=== PATIENT | male | born 1960 | race African-American/Black ===

== ENCOUNTER 2021-06-28 05:20 | Inpatient (IN) | payer OTHER ==
[~2021-06-28] VITALS: Ht 172.7 cm; Wt 160.6 kg
[2021-06-28] VITALS (7 sets, daily range): BP systolic 90–142; BP diastolic 53–64
--- NOTE | ~2021-06-28 | EMS ---
[address] [address] EMS Patient Care Report Name: ZAYRA NAVAS JR Room #: REG JAVIER Cantrell#: [id number] Admission: 06/28/21 Attend Phys: Discharge: Date of : 60 Report #: [id number] THIS REPORT FOR: //name// Report Transmitted: 06/28/2021 05:12 EMS Care Summary [place], [place]/[facility] Incident [id number] @ 06/28/2021 04:48 Incident Location [address] [place], [place] [id number] Patient ZAYRA NAVAS Male, 61 Years 1960 Patient Address [address] [place] [address] Patient History Congestive Heart Failure (CHF),Diabetes,Hypertension (HTN), Patient Allergies No known allergies, Patient Medications Unknown, Chief Complaint shortness of breath Disposition Transported [place] Dispatch Reason Breathing Problem Transported To [facility] Narrative M36 dispatched on a breathing problems. M36 arrived to home to find calling alliance party directing EMS to garage door. PT found seated in recliner inside of home. PT pale, diaphoretic and cool to the touch. PT stated shortness of breath as chief complaint. PT spoke in short choppy sentences with increased work of [address] [address] EMS Patient Care Report Name: ZAYRA NAVAS JR Room #: REG ER Óscar#: [id number] Admission: 06/28/21 Attend Phys: Discharge: Date of : 60 Report #: [id number] breathing. PT stated history of CHF. CP stated PT had not left recliner in up to a week. CP stated PT refused to go to the hospital before now. PT moved from recliner to stretcher by six Fire and EMS personnel lifting PT to stretcher. PT secured with seatbelts. PT placed on oxygen. PT placed on CPAP in ambulance. CP requested transport to [facility]. PT informed closer facility recommended. PT consented to transport to closer facility. PT vitals monitored during transport. PT report given. PT moved to hospital bed by four person sheet lift. PT care and belongings transferred to ER staff at [facility] without incident. M36 placed back in service. PT reported to [place] [facility] line as he and CP are unable to care for him. Confirmation Your report has been submitted Confirmation Number: [id number] Date: 06/28/2021 6:09 AM Initial Vitals @05:12P: 88,SpO2: 80, @05:15P: 104,R: 22,BP: 108/56,Pain: 0/10,GCS: 13,Glucose: -2,CO: 17,SpO2: 98,Revised Trauma: 12, @05:07P: 100,R: 24,BP: 94/64,Pain: 0/10,GCS: 13,SpO2: 98,Revised Trauma: 12, @05:07P: 144,R: 26,BP: 78/38,Pain: 0/10,GCS: 13,SpO2: 82,Revised Trauma: 11, @05:08P: 120,R: 24,BP: 80/48,Pain: 0/10,GCS: 13,SpO2: 99,Revised Trauma: 11, Assessments @04:56MENTAL:Person Oriented,Time Oriented,Confused,Place Oriented,SKIN:Pale,Cold,Diaphoresis,HEENT:Neck/Airway: JVD,LUNG SOUNDS:ABDOMEN:PELVIS//GI:Incontinence,EXTREMITIES:Left Leg: Edema,Right Leg: Edema,Right Arm: Other,PULSE:Radial: 1+ Thready,NEURO:Other, Impression Shortness of breath Procedures @04:59Oxygen FlowRate: 5 Device: Nasal Cannula (NC) Response: UnchangedSucceeded@04:56ALS AssessmentResponse: UnchangedSucceeded@05:05CPAP FlowRate: 10 Response: UnchangedSucceeded@05:07Saline Lock 0cc (20 ga) Site: Hand-LeftResponse: UnchangedFailed@05:11Saline Lock 10cc (20 ga) Site: Antecubital-RightResponse: UnchangedSucceeded Timeline 04:46,Call Received 04:46,Dispatch Notified 04:48,Dispatched [address] [address] EMS Patient Care Report Name: ZAYRA NAVAS JR Room #: REG Óscar#: [id number] Admission: 06/28/21 Attend Phys: Discharge: Date of : 60 Report #: [id number] 04:50,En Route 04:54,On Scene 04:55,At Patient 04:56,ALS Assessment,Response: UnchangedSucceeded, 04:59,Oxygen FlowRate: 5 Device: Nasal Cannula (NC) Response: UnchangedSucceeded, 05:05,CPAP FlowRate: 10 Response: UnchangedSucceeded, 05:07,BP: 78/38 M,PULSE: 144,RR: 26 R,SPO2: 82 Ox,ETCO2: ,BG: ,PAIN: 0,GCS: 13, 05:07,Saline Lock 0cc 20 ga Site: Hand-Left,Response: UnchangedFailed, 05:07,BP: 94/64 M,PULSE: 100,RR: 24 R,SPO2: 98 Ox,ETCO2: ,BG: ,PAIN: 0,GCS: 13, 05:08,BP: 80/48 M,PULSE: 120,RR: 24 R,SPO2: 99 Ox,ETCO2: ,BG: ,PAIN: 0,GCS: 13, 05:11,Depart Scene 05:11,Saline Lock 10cc 20 ga Site: Antecubital-Right,Response: UnchangedSucceeded, 05:12,BP: / M,PULSE: 88,RR: R,SPO2: 80 Ox,ETCO2: ,BG: ,PAIN: ,GCS: , 05:15,BP: 108/56 M,PULSE: 104,RR: 22 R,SPO2: 98 Ox,ETCO2: ,BG: -2,PAIN: 0,GCS: 13, 05:27,At Destination 05:33,Call Closed Disclaimer v1.1 Copyright 2020 [employer] This EMS Care Summary contains data elements from the applicable legal record (which may be displayed differently). It is designed to provide pertinent information for the following purposes: continuity of care, clinical quality, and state data reporting. The complete legal record is available to ED staff and administrators of the receiving hospital in [employer]'s Patient Tracker. All data is provided "as is."
[~2021-06-28 05:20] MED LIST: ALDACTONE50 MG PO; AZITHROMYCIN 2250 MG PO; BP; COZAAR 50 MG TA50 M2 PO; HYDROCHLOROTHIA25 M2 PO; LANTUS SOL100 UNIT/1 SQ; LASIX 40 MG TAB40 M2 PO; LISINOPRIL5 MG PO; LOPRESSOR50 PO; METFORMIN HCL500 MG; METFORMIN HCL500 MG PO; METOPROLOL TART25 MG PO
[2021-06-28 05:39] LABS: BE(vivo) -12.1 mmol/L (-2 to +3); HCO3 13.2 mmol/L (22.0-26.0); PCO2 28.5 mmHg (35.0-45.0); PO2 176.5 mmHg (80.0-100.0); sO2 99.1 % (92.0-98.0)
[2021-06-28 05:41] LABS: pH 7.285 (7.360-7.450)
[2021-06-28 06:00] LABS: HEMATOCRIT 31.8 % (42.0-52.0); HEMOGLOBIN 9.8 gm/dL (14.0-18.0); MCH 27.2 pg (26.0-34.0); MCHC 30.9 g/dL (28.0-37.0); MCV 87.9 fL (80.0-100.0); PLATELET COUNT 223 thou/uL (150-400); RBC 3.62 mil/uL (4.50-6.00); RDW 15.1 % (10.5-14.5); WBC 16.2 thou/uL (4.0-11.0)
[2021-06-28 06:12] LABS: CALCIUM 7.9 mg/dL (8.5-10.1); CREATININE 7.2 mg/dL (0.7-1.3); POTASSIUM 5.8 mmol/L (3.5-5.1)
[2021-06-28 06:19] LABS: APTT 34.6 Seconds (24.5-32.8); INR 1.3
[2021-06-28 06:25] LABS: ALBUMIN 0.7 g/dL (3.4-5.0); TOTAL BILIRUBIN 0.5 mg/dL (0.2-1.0); TOTAL PROTEIN 5.9 g/dL (6.4-8.2)
[2021-06-28 06:25] LABS: URINE BILIRUBIN NEGATIVE (Negative); URINE BLOOD 1+ (Negative); URINE CLARITY CLOUDY; URINE COLOR YELLOW; URINE GLUCOSE-RANDOM* 2+ (Negative); URINE KETONES NEGATIVE (Negative); URINE NITRITE-REFLEX NEGATIVE (Negative); URINE PROTEIN (DIPSTICK) 2+ (Negative); URINE SPECIFIC GRAVITY 1.025 (1.005-1.035); URINE UROBILINOGEN 0.2 E.U./dl (0.2-1.0)
[2021-06-28 06:26] LABS: URINE LEUKOCYTES-REFLEX 2+ (Negative)
[2021-06-28 06:52] LABS: ABSOLUTE NEUTROPHILS 13.4 thou/uL (1.4-8.2); METAMYELOCYTES 3 %; PLATELET ESTIMATE NORMAL
[2021-06-28 06:56] LABS: COARSE GRANULAR CASTS 4-10 Moderate /LPF (None Seen)
[2021-06-28 06:57] LABS: CRYSTALS None Seen /LPF (None Seen); SQUAMOUS 4-10 Moderate /LPF (0-3); URINE RBC 1-2 Rare /HPF (NONE SEEN); URINE WBC-REFLEX >25 Many /HPF (0-5)
--- NOTE | 2021-06-28 07:04 | NUR ---
0615 I ENTERED ROOM PT HAD TAKEN OFF HIS BIPAP, EDUCATED PT TO IMPORTANCE OF LEAVING BIPAP ON. PT VERBALIZED UNDERSTANDING. [facility] I HEARD THE BIPAP ALARMING AGAIN. UPON ENTERING PT ROOM HE HAD TAKEN OFF HIS BIPAP MASK AGAIN. PT HAD AGONAL RESPIRATIONS AT THAT TIME PT WAS NOT RESPONSIVE TO VERBAL AT THIS TIME AND HIS GAZE WAS UPAND RIGHTWARD. BIPAP MASK REPLACED, PT NOT RESPONSIVE TO STERNAL RUB. NOTIFIED AND AT BEDSIDE TO ASSESS PT. PT CONT TO BE UNRESPONSIVE AND WAS INTUBATED FOR RESP FAILURE.
[2021-06-28 07:14] LABS: HCO3 12.4 mmol/L (22.0-26.0); PCO2 39.2 mmHg (35.0-45.0); PO2 493.5 mmHg (80.0-100.0); pH 7.118 (7.360-7.450); sO2 99.8 % (92.0-98.0)
[2021-06-28 11:50] LABS: BE(vivo) -14.3 mmol/L (-2 to +3); HCO3 12.9 mmol/L (22.0-26.0); PCO2 34.5 mmHg (35.0-45.0); PO2 215.1 mmHg (80.0-100.0); sO2 99.2 % (92.0-98.0)
[2021-06-28 11:51] LABS: pH 7.189 (7.360-7.450)
[2021-06-28 12:17] LABS: ANION GAP 21 mmol/L (7-16); BUN 117 mg/dL (7-18); CALCIUM 7.4 mg/dL (8.5-10.1); CHLORIDE 100 mmol/L (98-107); CO2 13 mmol/L (21-32); CREATININE 6.8 mg/dL (0.7-1.3); GLUCOSE 347 mg/dL (74-106); POTASSIUM 5.7 mmol/L (3.5-5.1); SODIUM 134 mmol/L (136-145)
[2021-06-28 12:23] LABS: SGOT 26 U/L (15-37); SGPT 16 U/L (30-65); TOTAL BILIRUBIN 0.4 mg/dL (0.2-1.0)
--- NOTE | 2021-06-28 12:27 | NUR ---
PT SISTER RICARDO ROBLEDO UPDATED ON PT CONDITION AFTER SURGERY. PT SISTER RICARDO ROBLEDO WAS INFORMED ABOUT ICU VISITATION HOURS AND VISITATION POLICY AND MASK MANDATE IN THE CAMPUS. PT SISTER VERBALIZED UNDERSTANDING.
[2021-06-28 12:33] LABS: ALBUMIN < 0.6 g/dL (3.4-5.0)
--- NOTE | 2021-06-28 13:02 | NUR ---
PT ARRIVED FROM OR AROUND 1130. PT WAS TRANSFERRED BY OR TEAM, AND DR. NAVAS. PT WAS CONNECTED TO ICU MONITORS. PT WAS HYPOTENSIVE ON ARRIVAL TO ICU SO LEVOPHED WAS RESTARTED BY . PT IS CURRENTLY ON LEVOPHED AND PROPOFOL GTT. PT HAS RIGHT ARTERIAL LINE AND RIGHT IJ CENTRAL LINE PLACED BY ANESTHESIOLOGIST. FAMILY UPDATED ON PATIENT CONDITION POST SURGERY.
[2021-06-28 14:27] LABS: BE(vivo) -13.3 mmol/L (-2 to +3); HCO3 13.4 mmol/L (22.0-26.0); PCO2 34.1 mmHg (35.0-45.0); PO2 161.3 mmHg (80.0-100.0); sO2 98.7 % (92.0-98.0)
[2021-06-28 14:28] LABS: pH 7.212 (7.360-7.450)
--- NOTE | 2021-06-28 21:30 | NUR ---
This RN spoke to Dr. Vinita silva [phone] regarding patients poor urine output. Also discussed fluids and patient condition. No orders received, provider to see patient in the morning. Will continue to monitor.
[2021-06-29] VITALS (25 sets, daily range): BP systolic 63–154; BP diastolic 33–66
[2021-06-29 04:17] LABS: ABSOLUTE NEUTROPHILS 11.3 thou/uL (1.4-8.2); BASOPHILS 0.3 % (0.0-2.0); EOSINOPHILS 0.5 % (0.0-3.0); HEMATOCRIT 27.8 % (42.0-52.0); HEMOGLOBIN 8.9 gm/dL (14.0-18.0); LYMPHOCYTES 2.3 % (24.0-44.0); MCH 27.8 pg (26.0-34.0); MCHC 32.1 g/dL (28.0-37.0); MCV 86.6 fL (80.0-100.0); MONOCYTES 2.1 % (1.0-8.0); POLYS 94.8 % (36.0-66.0); RBC 3.21 mil/uL (4.50-6.00); RDW 15.4 % (10.5-14.5); WBC 11.9 thou/uL (4.0-11.0)
[2021-06-29 04:26] LABS: ALBUMIN 0.5 g/dL (3.4-5.0); CALCIUM 7.1 mg/dL (8.5-10.1); CREATININE 5.9 mg/dL (0.7-1.3); PHOSPHORUS 8.4 mg/dL (2.5-4.9); POTASSIUM 4.9 mmol/L (3.5-5.1); TOTAL BILIRUBIN 0.5 mg/dL (0.2-1.0); TOTAL PROTEIN 4.6 g/dL (6.4-8.2)
[2021-06-29 04:30] LABS: PLATELET COUNT 111 thou/uL (150-400)
[2021-06-29 04:59] LABS: HCO3 16.2 mmol/L (22.0-26.0); PCO2 32.3 mmHg (35.0-45.0); PO2 131.1 mmHg (80.0-100.0); sO2 98.4 % (92.0-98.0)
[2021-06-29 05:04] LABS: pH 7.317 (7.360-7.450)
--- NOTE | 2021-06-29 18:26 | NUR ---
PT HAS NO SEEN ANY IMPROVEMENT IN CONDITION TODAY, PT IS PRESENTLY MAXED OUT ON LEVOPHED AT 30, JESSI AT 125, INSULIN DRIP 5U/HR.FENT 50, PROPOFOL 30 AND VASOPRESSIN 0.03. PT CONTINUES TO HAVE POOR URINARY OUTPUT WITH 75CC TODAY DURING DAY SHIFT DESPITE HAVING OVER 3,000ML FLUIDS. PT REMAINS BORDERLINE HYPOTENSIVE DESPITE PRESSOR USE. WOUND CONTINUES TO DRAIN SIGNIFCANTLY WITH A FOUL SMELLING ODOR. PT 2 SISTERES HAVE BEEN BY TODAY TO VISIT WITH THE PATIENT AND HAVE SPOKEN TO MD REGARDING PT OUTLOOK AND HAVE COME TO THE DECESION TO MAKE PT A DNR. WILL CONTINUE TO MONITOR PT AND FOLLOW POC.
[2021-06-30] VITALS (24 sets, daily range): BP systolic 98–140; BP diastolic 47–65
[2021-06-30 04:48] LABS: HEMATOCRIT 24.9 % (42.0-52.0); HEMOGLOBIN 8.3 gm/dL (14.0-18.0); MCH 28.1 pg (26.0-34.0); MCHC 33.2 g/dL (28.0-37.0); MCV 84.8 fL (80.0-100.0); RBC 2.94 mil/uL (4.50-6.00); RDW 15.5 % (10.5-14.5); WBC 15.4 thou/uL (4.0-11.0)
[2021-06-30 04:50] LABS: BE(vivo) -7.1 mmol/L (-2 to +3); HCO3 17.4 mmol/L (22.0-26.0); PO2 143.2 mmHg (80.0-100.0); pH 7.367 (7.360-7.450); sO2 98.8 % (92.0-98.0)
[2021-06-30 05:03] LABS: ALBUMIN < 0.6 g/dL (3.4-5.0); ANION GAP 18 mmol/L (7-16); BUN 112 mg/dL (7-18); CALCIUM 6.2 mg/dL (8.5-10.1); CHLORIDE 96 mmol/L (98-107); CO2 20 mmol/L (21-32); CREATININE 5.2 mg/dL (0.7-1.3); GLUCOSE 142 mg/dL (74-106); PHOSPHORUS 8.9 mg/dL (2.5-4.9); POTASSIUM 4.9 mmol/L (3.5-5.1); SODIUM 134 mmol/L (136-145)
--- NOTE | 2021-06-30 06:17 | NUR ---
PT SEDATED ON VENTILATOR THROUGHOUT SHIFT. TITRATED PRESSORS TOLERATED. GROIN WOUND HAVING LARGE AMOUNT OF DRAINAGE. WILL CONTINUE TO MONITOR.
--- NOTE | 2021-06-30 07:28 | EKG ---
[place] [address] [facility] [address] ELECTROCARDIOGRAM REPORT Name: ZAYRA NAVAS Room #: 243-P ADM IN M.R.#: [id number] Admission: 06/28/21 Attend Phys: Rylee Benitez MD Discharge: Date of : 60 Report #: [id number] [facility] ED Test Date: 2021-06-28 Test Time: 05:37:35 Pat Name: ZAYRA NAVAS Department: Room: 243 Gender: M Trimming Inspector: diane carranza rn : 1960 Requested By: Dalton Kim Order Number: [id number] MD: Berny Hdz Measurements Intervals [place] Rate: 103 P: 31 WY: 155 QRS: -2 QRSD: 98 T: 15 QT: 346 QTc: 453 Interpretive Statements Sinus tachycardia Baseline wander in lead(s) V1,V5,V6 Compared to ECG 12/18/2016 13:48:06 Sinus rhythm no longer present Left ventricular hypertrophy no longer present Electronically Signed On 06-30-2021 7:28:33 CDT by Beryn Hdz [email or web address] <ELECTRONICALLY SIGNED> By: Berny Hdz MD, [facility] 06/30/21 07 6 Berny Hdz MD, [facility] /EPI
--- NOTE | 2021-06-30 09:50 | NUR ---
Chart review, discussed during am unit rounds. Vent 30 % FIO2, Peep 5. Surgical debridement left thigh and perineal area for necrotized faucitis. Dx Sepsis. Report during rounds, family possible thinking of withdrawal care? Cm left message for sister [place] # [phone], requested a call back. Consult for palliative SPEECH PATHOLOGIST ASSISTANT, she spoke with MD and will visit with his siters on options. Prior to hospital he was living alone, difficulty caring for himself at home. Will cont. following as needed for dc needs.
--- NOTE | 2021-06-30 10:06 | NUR ---
Notification of pt with necrotizing fasciitis, also ALBERT, severe sepsis, ALBERT, w/ intubation. Chart reviewed and ICU rounds: pt has been made DNR. No plans for start enteral nutrition at this time.
[2021-07-01] VITALS (17 sets, daily range): BP systolic 81–140; BP diastolic 38–74
[2021-07-01 05:09] LABS: HEMATOCRIT 21.8 % (42.0-52.0); HEMOGLOBIN 7.4 gm/dL (14.0-18.0); MCH 28.2 pg (26.0-34.0); MCHC 33.9 g/dL (28.0-37.0); MCV 83.3 fL (80.0-100.0); PLATELET COUNT 66 thou/uL (150-400); RBC 2.61 mil/uL (4.50-6.00); RDW 15.1 % (10.5-14.5); WBC 13.4 thou/uL (4.0-11.0)
[2021-07-01 05:29] LABS: ALBUMIN < 0.6 g/dL (3.4-5.0); ANION GAP 17 mmol/L (7-16); BUN 111 mg/dL (7-18); CHLORIDE 92 mmol/L (98-107); CO2 21 mmol/L (21-32); CREATININE 4.9 mg/dL (0.7-1.3); GLUCOSE 201 mg/dL (74-106); PHOSPHORUS 9.8 mg/dL (2.5-4.9); POTASSIUM 5.2 mmol/L (3.5-5.1); SODIUM 130 mmol/L (136-145)
[2021-07-01 05:53] LABS: CALCIUM 5.9 mg/dL (8.5-10.1)
--- NOTE | 2021-07-01 08:00 | NUR ---
shahab with [facility] called, , open case, unable to make visits yet r/t covid. would like update on his status and dc date when he dc.
[2021-07-01 09:24] LABS: ABSOLUTE NEUTROPHILS 12.6 thou/uL (1.4-8.2); PLATELET ESTIMATE DECREASED
--- NOTE | 2021-07-01 11:42 | NUR ---
PT TRANSPORTED TO OR FOR WOUND DEBRIDEMENT AT 1030AM THIS MORNING. PT ON THE WAY BACK TO UNIT AT 1145AM, OR REPORTS 12 KERLEX DRESSINGS PLACED INSIDE THE WOUND WITH ESTIMATED BLOOD LOSS OF 50CC, NO OTHER CHANGES REPORTED.
--- NOTE | 2021-07-01 18:19 | NUR ---
PT TAKEN DOWN TO OR TODAY AT 1030 AM WHERE HE HAD WOUND DEBRIDEMENT WITH 12 NEW ROLLS OF KERLEX PLACED INSIDE WOUND. PT WAS CHANGED AND CLEANED THIS AFTERNOON BY NURSING STAFF , DRESSING PADS WERE COMPLETELY SATURATED WITH BODY FUILDS MINIMAL AMOUNT OF BLEEDING PRESENT FROM PROCEDURE. NEW DRESSINGS PLACED, ALONG WITH NEW CVP & ART LINE TUBING. WE HAVE HAD GOOD RESPONSE WITH DECREASE IN PT TITRATION OF PRESSORS. PT HAS HAD JESSI OFF SINCE RETURNING FROM THE OR AT APPROX NOON, AND LEVO HAS DECREASED FROM 16 AT THE START OF SHIFT TO 12. PT IS MAINTAINING BLOOD PRESSURE WITH NSR. PT HAD SISTER VISIT TODAY AND WAS UPDATED ON PT STATUS. WILL CONTINUE TO FOLLOW POC AND TITRATE MEDICATIONS.
[2021-07-02] VITALS (7 sets, daily range): BP systolic 99–216; BP diastolic 47–81
[2021-07-02 06:34] LABS: ALBUMIN 1.4 g/dL (3.4-5.0); CALCIUM 6.2 mg/dL (8.5-10.1); PHOSPHORUS 10.7 mg/dL (2.6-4.7); POTASSIUM 4.9 mmol/L (3.5-5.1)
--- NOTE | 2021-07-02 13:39 | NUR ---
61-year-old male admitted and treated for Diabetes's and necrotizing fasciitis of the left thigh and perineum status post-surgical debridement along with multisystem failure. Subsequently being treated for septic shock, ALBERT, metabolic acidosis, DM and HTN. Pt first treated for a Sharp excisional debridement of left thigh and perineal necrotizing fasciitis on 06/28/21 and again on 07/01/21. Per attending AM MD review: On Vent with FI02 at 30% and PEEP of 5 with plan to wean when able. On 06/30/21 a palliative care consult was completed and discussion from family would prefer LTC placement if the patient were able to discharge from the hospital in his current state, noting that patient was living home alone prior to admission but was struggling. Sisters [facility] at [phone] and [facility] at [phone] were both spoke to by palliative care. Goals of Care were discussed, and family would like to follow with nephrology and outcome before planning to transition to comfort and palliative extubation if the patient does not improve within the next few days. Palliative Care will continue along with CM to follow for family wishes as care progresses.
[2021-07-02 16:33] LABS: RBC 1.54 mil/uL (4.50-6.00)
[2021-07-02 16:34] LABS: MCH 28.5 pg (26.0-34.0); MCHC 34.3 g/dL (28.0-37.0); MCV 82.9 fL (80.0-100.0); PLATELET COUNT 48 thou/uL (150-400); RDW 15.2 % (10.5-14.5); WBC 7.5 thou/uL (4.0-11.0)
[2021-07-02 16:43] LABS: HEMATOCRIT 12.7 % (42.0-52.0); HEMOGLOBIN 4.4 gm/dL (14.0-18.0)
[2021-07-02 17:08] LABS: POTASSIUM 5.1 mmol/L (3.5-5.1)
[2021-07-02 17:14] LABS: CALCIUM 5.9 mg/dL (8.5-10.1)
[2021-07-02 17:44] LABS: INR 1.07; PROTIME 11.6 Seconds (10.5-12.1)
--- NOTE | 2021-07-02 17:52 | NUR ---
Dr. Marshall expressed he called patients spokesperson and updated them on his condition and labs. Physician expressed they are planning on withdrawing care tomorrow, 07/03/21, so no blood transufion of PRBC or Platelets at this time. Nurse to cancel order in the computer.
--- NOTE | 2021-07-02 18:43 | NUR ---
Dr. Enamorado rounded on patient, he was updated on patients plan of care and current labs. Nurse informed him that per Dr. Marshall, not going to give blood. He expressed to not give the calcium gluconate since patient was not going to get the blood.
--- NOTE | 2021-07-02 18:46 | NUR ---
Patient not progressing towards plan of care as evidenced by continued need for pressor support, ventilator support, and lab values. Per Dr. Marshall, continue current treatments, no aditional therapies at this time. Plan of care is to continue to monitor patient vital signs, assessments, labs and treat as per physician ordered.
[2021-07-02 19:09] LABS: ABSOLUTE NEUTROPHILS 6.4 thou/uL (1.4-8.2)
[2021-07-02 19:12] LABS: HYPOCHROMASIA 2+; TARGET CELLS 1+
[2021-07-03] VITALS (10 sets, daily range): BP systolic 80–184; BP diastolic 35–77
[2021-07-03 05:07] LABS: MCH 29.1 pg (26.0-34.0); MCHC 34.3 g/dL (28.0-37.0); MCV 84.7 fL (80.0-100.0); RBC 1.36 mil/uL (4.50-6.00); RDW 15.2 % (10.5-14.5); WBC 6.5 thou/uL (4.0-11.0)
[2021-07-03 05:16] LABS: ALBUMIN 2.1 g/dL (3.4-5.0); CREATININE 4.9 mg/dL (0.7-1.3); PHOSPHORUS 12.8 mg/dL (2.5-4.9); POTASSIUM 5.7 mmol/L (3.5-5.1)
[2021-07-03 05:25] LABS: HEMATOCRIT 11.5 % (42.0-52.0); HEMOGLOBIN 3.9 gm/dL (14.0-18.0)
[2021-07-03 05:43] LABS: CALCIUM 5.6 mg/dL (8.5-10.1)
--- NOTE | 2021-07-03 06:06 | NUR ---
PT NOT PROGRESSING TOWARDS GOAL. UNABLE TO WEAN PRESSORS. PT REMAINS SEDATED ON THE VENTILATOR.
--- NOTE | 2021-07-03 09:05 | HC ---
[facility] [place] [address] CONSULTATION Name: ZAYRA NAVAS JR Room #: 243-P [facility] IN M.R.#: [id number] Admission: 06/28/21 Attend Phys: Rylee Benitez MD Discharge: Date of : 60 Report #: [id number] THIS REPORT FOR: cc: FAM - No family physician/PCP FAM - No family physician/PCP Shane Reina MD ~ DATE OF SERVICE: 06/28/2021 CHIEF COMPLAINT: Necrotizing infection. HISTORY OF PRESENT ILLNESS: This is a 61-year-old male patient who apparently lives alone. He was brought to the Emergency Department with respiratory failure, was intubated in the Emergency Department, was noted to have a necrotizing infection of the perineum region. He had been to surgery for incision and drainage and debridement. I have been asked to see him with regard to wound care. The patient is not able to provide any information about himself, is sedated on a respirator. PAST MEDICAL HISTORY: Pertinent for diabetes, hypertension, hyperglycemia. SOCIAL HISTORY: Positive for alcohol use. Negative for tobacco use. MEDICATIONS: Include insulin, hydrochlorothiazide, Lasix, Cozaar, Aldactone, Lopressor. ALLERGIES: Atorvastatin. FAMILY HISTORY: Unknown. REVIEW OF SYSTEMS: Not obtainable due to the patient's condition. PHYSICAL EXAMINATION: VITAL SIGNS: The patient's vital signs at this time include temperature 36.3, pulse 90, respiration of 20. GENERAL: This is a somewhat chronically ill-appearing male patient, appears to be sedated on a respirator. HEENT: Normocephalic. He is orally intubated. NECK: Supple. LUNGS: Diminished. HEART: Regular rhythm. ABDOMEN: Soft. Perineal region demonstrates a surgical wound to the left groin that is still somewhat malodorous with a mix of some granulation tissue and fibrinous material. NEUROLOGIC: The patient is sedated on a respirator. LABORATORY DATA: Sodium 133, potassium 5.8, chloride 97, CO2 of 14, BUN 116, [facility] [address] [place] [address] CONSULTATION Name: ZAYRA NAVAS Room #: [facility].#: [id number] Admission: 06/28/21 Attend Phys: Rylee Benitez MD Discharge: Date of : 60 Report #: [id number] creatinine is 7.2, glucose is 473. Lactic acid 2.7, calcium is 7.9, albumin is 0.7. White blood cell count 16.2 with a hemoglobin of 9.8. CLINICAL IMPRESSION: 1. Necrotizing soft tissue infection to the perineal region, now status post surgical debridement. 2. Respiratory failure requiring mechanical ventilation. 3. Severe sepsis. RECOMMENDATIONS: At this point in time, saline moist gauze packing for now. He may need serial debridements. Hyperbaric oxygen would be a consideration, and we are unable to offer hyperbaric oxygen therapy at this facility since we cannot perform a critical care and management of ventilator while in the hyperbaric chamber. Continue with aggressive management of other underlying medical issues. I appreciate being asked to see him in consultation. <ELECTRONICALLY SIGNED> By: Shane Reina MD 07/03/21 0905 1717 0012 Shane Reina MD /nt
--- NOTE | 2021-07-03 09:25 | NUR ---
Nutrition: Pt now comfort care. plan for palliative extubation when family is ready.
--- NOTE | 2021-07-03 14:26 | NUR ---
returned voice message from pat, asking if her and sister could both be here tomorrow 07/04/21 at 10am when he is changed to comfort care or do have to visit 1 at a time. Also would like a j luis there as well. Juan Jose passed on question on unite nurse supervisior. Will cont following as needed for support.
[2021-07-04] VITALS (11 sets, daily range): BP systolic 86–130; BP diastolic 41–60
--- NOTE | 2021-07-04 09:13 | NUR ---
ON THE VENT LIGHTLY SEDATED. VITALS STABLE ON LEVO FOR BP SUPPORT. A-LINE WITH [employer]. FAMILY PLANNING ON COMING IN AT 1000 AND DECIDE ON NEXT STEP IN POC PREVIOUSLY DISCUSSED WITH MDs.
--- NOTE | 2021-07-04 09:21 | NUR ---
PT NONVERBAL NONRESPONSIVE. + GAG. PUPILS REACT SLUGGISHLY. PT ON SEDATION. PROPOFOL AT 15 MCG. FENTANYL AT 15 MCG. ARTERIAL BP HIGH AND LOW AT TIMES. TITRATED GTTS ACCORDINGLY. PT ASSESSMENT UNCHANGED EXCEPT TEMP HAS DECREASED TO 94.1 AFER BATH COMPLETED AND BED CHANGED. 3 WARM BLANKETS APPLIED. PT TO BE TAKEN OF VENT TODAY PER FAMILY REQUEST AT 10:00 AM. SEE FS FOR VS AND ASSESSMENTS.
--- NOTE | 2021-07-04 10:57 | NUR ---
[employer] TR[employer]PLANT NOTIFIED OF FAMILY'S PLAN ON WITHDRAWING CARE TODAY, REF NO. OBTAINED. FAMILY NOW AT THE BEDSIDE AND CALL PLACED TO DR. MADISON WITH NO RESPONSE, MESSAGE SENT AND DR. JHONNY HARRIS.
--- NOTE | 2021-07-04 12:04 | NUR ---
PER FAMILY REQUEST PATIENT PALLIATIVELY EXTUBATED AT 1155 PER ORDERS. TWO SISTERS AT THE BEDSIDE, PAIN AND ANXIETY MEDICATION ADMINISTERED.
--- NOTE | 2021-07-04 12:39 | NUR ---
PATIENT AT 1215 WITH FAMILY AT THE BEDSIDE.
== END 2021-07-04 12:15 | DRG 853 ==
LOC: ER 05:20 → EROBS 07:31 → ICU 07:31 → TBA 08:46 → ICU 10:59
PROVIDERS: Emergency Medicine; Hospitalist; Internal Medicine Pulmonary Disease; Pediatrics; Specialist; ADMIT Internal Medicine; ATTEND Internal Medicine
PROC: 0JBM0ZZ Excision of Left Upper Leg Subcutaneous Tissue and Fascia, Open Approach (ICD-10-PCS; principal; 2021-06-28)
PROC: 5A1955Z Respiratory Ventilation, Greater than 96 Consecutive Hours (ICD-10-PCS; 2021-06-28)
DX: A41.9 Sepsis, unspecified organism (principal); M72.6 Necrotizing fasciitis; J96.00 Acute respiratory failure, unspecified whether with hypoxia or hypercapnia; G93.41 Metabolic encephalopathy; N17.9 Acute kidney failure, unspecified; I50.9 Heart failure, unspecified; R65.20 Severe sepsis without septic shock; E11.65 Type 2 diabetes mellitus with hyperglycemia; Z79.4 Long term (current) use of insulin; E66.01 Morbid (severe) obesity due to excess calories; Z66 Do not resuscitate; Z88.8 Allergy status to other drugs, medicaments and biological substances; Z20.822 Contact with and (suspected) exposure to COVID-19
CPT/HCPCS: 10078; 50101; 50386; 53078; 56526; 56527; 57092; 57095; 57103; 62110; 62900; 65020